=== PATIENT | female | born 1980 | race Caucasian/White ===

== ENCOUNTER 2018-01-08 19:59 | Emergency (ER) | payer MEDICAID ==
[2018-01-08 21:29] LABS: URINE BLOOD (Dip) POC Trace-intact (NEGATIVE); URINE GLUCOSE (Dip) POC Negative (NEGATIVE); URINE KETONES (Dip) POC Negative (NEGATIVE); URINE LEUKOCYTE EST (Dip) POC Negative (NEGATIVE); URINE NITRITE (Dip) POC Negative (NEGATIVE); URINE TOTAL PROTEIN POC Negative (NEGATIVE)
[2018-01-08 21:29] LABS: URINE PH (Dip) POC 5.5 (5.0-8.5)
== END 2018-01-08 23:38 | disposition home or self-care (01) ==
LOC: FTE 19:59
DX: O20.9 Hemorrhage in early pregnancy, unspecified (principal); Z3A.08 8 weeks gestation of pregnancy
CPT/HCPCS: 76801; 81003; 84702; 99284-25

== ENCOUNTER 2018-08-07 10:17 | Inpatient (IN) | payer OTHER ==
[2018-08-07] MEDS ORDERED: OXYTOCIN 30 UNITS/LR 500 ML IV ×3 (12:00→23:30)
[2018-08-07] MEDS ORDERED: BUTORPHANOL 2 MG INJ IV (12:00)
[2018-08-07] MEDS ORDERED: MISOPROSTOL 200 MCG TAB PR ×2 (12:00→23:30)
[2018-08-07] MEDS ORDERED: IBUPROFEN 600 MG TAB PO (12:00)
[2018-08-07] MEDS ORDERED: CARBOPROST 250 MCG INJ IM ×2 (12:00→23:30)
[2018-08-07] MEDS: LACTATED RINGER'S 1,000 ML IV ×2 (12:32→18:52)
[2018-08-07] MEDS: OXYTOCIN 30 UNITS/LR 500 ML IV ×3 (12:32→23:15)
[2018-08-07 12:35] LABS: ADD MAN DIFF? NO
[2018-08-07 12:36] LABS: BASOPHILS % 0.3 % (0.0-2.0); EOSINOPHILS # 0.2 10^3/ul (0.0-0.5); EOSINOPHILS % 2.1 % (0.0-7.0); HEMOGLOBIN 12.9 g/dl (12.0-16.0); LYMPHOCYTES # 2.1 10^3/ul (0.8-2.9); LYMPHOCYTES % 27.7 % (15.0-51.0); MEAN CORPUSCULAR HEMOGLOBIN 32.6 pg (29.0-33.0); MEAN CORPUSCULAR HGB CONC 33.9 g/dl (32.0-37.0); MEAN PLATELET VOLUME 10.9 fl (7.4-10.4); MONOCYTE # 0.4 10^3/ul (0.3-0.9); MONOCYTES % 5.6 % (0.0-11.0); NEUTROPHIL # 4.9 10^3/ul (1.6-7.5); NEUTROPHILS % 63.8 % (39.0-77.0); PLATELET COUNT 155 10^3/UL (140-415); RED BLOOD COUNT 3.96 10^6/ul (4.20-5.40); RED CELL DISTRIBUTION WIDTH 12.7 % (11.5-14.5)
[2018-08-07 12:36] LABS: WHITE BLOOD COUNT 7.7 10^3/ul (4.8-10.8)
[2018-08-07 12:56] LABS: INR 0.93; PROTIME 12.6 Sec (11.9-14.9)
[2018-08-07 12:57] LABS: PARTIAL THROMBOPLASTIN TIME 27.3 Sec (23.0-35.0)
[2018-08-07 13:30] LABS: HEPATITIS B SURFACE ANTIGEN NEGATIVE (NEGATIVE)
[2018-08-07 15:23] LABS: RAPID PLASMA REAGIN NONREACTIVE (NR)
[2018-08-07] MEDS: METHYLERGONOVINE 0.2 MG INJ IM (21:13)
[2018-08-07] MEDS: LIDOCAINE 1% (MPF) 30 ML INJ INJ (21:14)
[2018-08-07] MEDS ORDERED: WITCH HAZEL/GLYCERIN PAD PR (23:30)
[2018-08-07] MEDS ORDERED: ACETAMINOPHEN 325 MG TAB PO (23:30)
[2018-08-07] MEDS ORDERED: DIPHENHYDRAMINE 25 MG CAP PO (23:30)
[2018-08-07] MEDS ORDERED: METHYLERGONOVINE 0.2 MG INJ IM (23:30)
[2018-08-07] MEDS ORDERED: HYDROCODONE/APAP (5/325) TAB PO (23:30)
[2018-08-07] MEDS ORDERED: LANOLIN HPA 1 PKT TOP (23:30)
[2018-08-07] MEDS ORDERED: NACL 0.9% 3 ML SYG IV (23:30)
[2018-08-07] MEDS ORDERED: ONDANSETRON 4 MG INJ IV (23:30)
[2018-08-07] MEDS ORDERED: ZOLPIDEM 5 MG TAB PO (23:30)
[2018-08-07] MEDS: IBUPROFEN 600 MG TAB PO (23:58)
[2018-08-08] MEDS: IBUPROFEN 600 MG TAB PO ×3 (05:19→17:11)
[2018-08-08 07:15] LABS: ADD MAN DIFF? NO
[2018-08-08 07:19] LABS: BASOPHILS % 0.2 % (0.0-2.0); EOSINOPHILS % 0.2 % (0.0-7.0); HEMATOCRIT 37.3 % (37.0-47.0); HEMOGLOBIN 12.8 g/dl (12.0-16.0); LYMPHOCYTES # 1.7 10^3/ul (0.8-2.9); MEAN CORPUSCULAR HEMOGLOBIN 32.7 pg (29.0-33.0); MEAN CORPUSCULAR HGB CONC 34.3 g/dl (32.0-37.0); MEAN CORPUSCULAR VOLUME 95.2 fl (82.0-101.0); MEAN PLATELET VOLUME 11.4 fl (7.4-10.4); MONOCYTE # 1.4 10^3/ul (0.3-0.9); MONOCYTES % 8.7 % (0.0-11.0); NEUTROPHIL # 13.2 10^3/ul (1.6-7.5); NEUTROPHILS % 80.2 % (39.0-77.0); PLATELET COUNT 148 10^3/UL (140-415); RED BLOOD COUNT 3.92 10^6/ul (4.20-5.40); RED CELL DISTRIBUTION WIDTH 12.5 % (11.5-14.5)
[2018-08-08 07:19] LABS: WHITE BLOOD COUNT 16.5 10^3/ul (4.8-10.8)
[2018-08-08] MEDS: SENNA/DOCUSATE NA (8.6MG/50MG) TAB PO ×2 (09:21→20:53)
[2018-08-09] MEDS: IBUPROFEN 600 MG TAB PO ×3 (00:03→12:56)
[2018-08-09 07:52] LABS: ADD MAN DIFF? NO
[2018-08-09 07:57] LABS: BASOPHIL # 0.1 10^3/ul (0.0-0.1); BASOPHILS % 0.5 % (0.0-2.0); EOSINOPHILS # 0.3 10^3/ul (0.0-0.5); EOSINOPHILS % 3.3 % (0.0-7.0); HEMATOCRIT 36.5 % (37.0-47.0); LYMPHOCYTES # 2.2 10^3/ul (0.8-2.9); LYMPHOCYTES % 21.6 % (15.0-51.0); MEAN CORPUSCULAR HEMOGLOBIN 32.1 pg (29.0-33.0); MEAN CORPUSCULAR HGB CONC 32.9 g/dl (32.0-37.0); MEAN CORPUSCULAR VOLUME 97.6 fl (82.0-101.0); MEAN PLATELET VOLUME 11.4 fl (7.4-10.4); MONOCYTE # 0.7 10^3/ul (0.3-0.9); MONOCYTES % 6.5 % (0.0-11.0); NEUTROPHIL # 6.8 10^3/ul (1.6-7.5); NEUTROPHILS % 67.5 % (39.0-77.0); PLATELET COUNT 163 10^3/UL (140-415); RED BLOOD COUNT 3.74 10^6/ul (4.20-5.40); RED CELL DISTRIBUTION WIDTH 12.9 % (11.5-14.5)
[2018-08-09] MEDS: DIPHTH/TET/ACEL PERTUSS (ADULT) 0.5 ML VIAL IM* (08:01)
[2018-08-09] MEDS: MEASLES,MUMPS,RUBELLA VACCINE INJ SC* (08:02)
[2018-08-09] MEDS: VARICELLA VACCINE LIVE/PF 1,350 UNIT/0.5 ML ML SC* (08:02)
[2018-08-09] MEDS: SENNA/DOCUSATE NA (8.6MG/50MG) TAB PO (08:43)
== END 2018-08-09 15:30 | disposition home or self-care (01) | DRG 807 ==
LOC: OBT 10:17 → L-D 10:18 → OBT 11:34 → L-D 11:30 → PP1 22:21
PROVIDERS: Obstetrics & Gynecology
PROC: 10E0XZZ Delivery of Products of Conception, External Approach (ICD-10-PCS; principal; 2018-08-07)
PROC: 0HQ9XZZ Repair Perineum Skin, External Approach (ICD-10-PCS; 2018-08-07)
DX: O70.0 First degree perineal laceration during delivery (principal); Z37.0 Single live birth; O76 Abnormality in fetal heart rate and rhythm complicating labor and delivery; Z3A.39 39 weeks gestation of pregnancy
CPT/HCPCS: 76815; 76818; 85025; 85610; 85730; 86592; 86850; 86900; 86901; 87340